=== PATIENT | female | born 1985 | race African-American/Black ===

== ENCOUNTER 2016-08-20 03:28 | Inpatient (IN) | payer OTHER ==
[2016-08-20] VITALS (9 sets, daily range): BP systolic 109–126; BP diastolic 63–78
[~2016-08-20] VITALS: Ht 170.2 cm; Wt 82.8 kg
--- NOTE | ~2016-08-20 | HC ---
[facility] [place] [address] CONSULTATION Name: IVET PEGUERO Room #: 245-P ADM IN M.R.#: [id number] Admission: 08/20/16 Attend Phys: Guanako Terry MD Discharge: Date of : 87 Report #: [id number] THIS REPORT FOR: //name// CC: FLEX physician/PCP Guanako Terry DATE OF SERVICE: 08/20/2016 REASON FOR CONSULTATION: Chest pain. HISTORY OF PRESENT ILLNESS: This is a very pleasant 31-year-old female who was transferred via EMS from home to the Emergency Room for complaints of her substernal chest discomfort. The patient states that she woke up from sleep and it was a sharp, stabbing sensation like a needlestick. She states that she has not had any prior symptoms of this, but does have a history of dyspepsia and some symptoms compatible with reflux. Upon further questioning, she stated that the discomfort did not radiate but it was quite severe and could not tolerate it. She was a little bit nauseated with it and short of breath. The patient states she has had some symptoms in the past similar to this, they were all at rest when she is lying down. She has no symptoms whatsoever. She is up and about and ambulating. She does have a family history of coronary artery disease with father having had a myocardial infarction in the age of 40s. No associated comorbidities of diabetes, hypertension, and she does not smoke. PAST MEDICAL HISTORY: Preeclampsia. MEDICATIONS: At home are Sprintec daily, Tessalon Perles, Ventolin. ALLERGIES: AMOXICILLIN. PAST SURGICAL HISTORY: Significant for no major surgical procedures. FAMILY HISTORY: Significant for coronary artery disease and hypertension. ELECTROCARDIOGRAM: Normal sinus rhythm, nonspecific ST-T wave changes. Slight ST segment elevation diffusely in the inferolateral leads. Suspicious for early repolarization. SOCIAL HISTORY: The patient is a smoker. Consumes alcohol socially. Does not use recreational drugs. Does not follow particular exercise regimen or dietary restriction. REVIEW OF SYSTEMS: Except for symptoms previously mentioned and those commensurate with comorbid state, the 10-point review of systems is negative. [facility] [address] [place] [address] CONSULTATION Name: IVET PEGUERO JAYLA Room #: 245-P [facility] IN .R.#: [id number] Admission: 08/20/16 Attend Phys: Guanako Terry MD Discharge: Date of : 87 Report #: [id number] PHYSICAL EXAMINATION: GENERAL: Well-developed, well-nourished female resting comfortably in no acute distress. HEENT: Normocephalic, atraumatic. Pupils are equal, round, reactive to light and accommodation. Extraocular muscles are intact. Sclerae and conjunctivae are anicteric. NECK: JVD is normal. Carotid upstrokes are bilaterally symmetrical. No bruits are heard. No thyromegaly. No lymphadenopathy. LUNGS: Clear to auscultation. No wheezes, rhonchi or crackles. No CVA tenderness. CARDIAC: Demonstrates a regular rhythm. Normal first and second heart sounds. No ventricular or atrial gallops, no rubs noted. No murmurs. No lifts or heaves, PMI normal. ABDOMEN: Demonstrates some epigastric tenderness on palpation. Soft, nondistended. Normal bowel sounds. EXTREMITIES: Without cyanosis, clubbing or edema. Distal pulses are intact. DTR symmetrical. NEUROLOGIC: Cranial nerves 2-12 are grossly normal and symmetrical. PSYCHIATRIC: Alert, oriented with normal affect. SKIN: Warm and dry. LABORATORY DATA: Noted in the chart and reviewed. IMPRESSION: 1. Atypical chest pain, likely noncardiac in origin. We will get a stress echo to verify. If abnormal, then we will proceed further, but if not, then I will be assured that it is likely not cardiac in nature and we will need to evaluate other sources. 2. Dyspepsia. This may actually be the source of her symptoms. The nitroglycerin may have helped a little bit on admission to the ER. I am going to initiate omeprazole 40 mg daily if the stress echo is negative. I did discuss dietary changes and habits that are beneficial in individuals that have dyspepsia and acid peptic disease. 3. Recent ____ with respiratory tract infection, completely resolved according to the patient. <ELECTRONICALLY SIGNED> By: Rian Fischer MD 08/21/16 1154 1756 0122 Rian Fischer MD /nt
--- NOTE | ~2016-08-20 | EKG ---
[address] [address] ELECTROCARDIOGRAM REPORT Name: IVET PEGUERO Room #: 245-P ADM IN M.R.#: [id number] Admission: 08/20/16 Attend Phys: Guanako Terry MD Discharge: Date of : 87 Report #: [id number] THIS REPORT FOR: //name// [facility] ED Test Date: 2016-08-20 Test Time: 04:47:31 Pat Name: IVET PEGUERO Department: [facility] Gender: F Store Protection Specialist: KENNETH : 1985 Requested By: Dat Brown Order Number: [id number] MD: Dimas Hyman Measurements Intervals [place] Rate: 60 P: 4 OK: 148 QRS: 62 QRSD: 90 T: 18 QT: 431 QTc: 431 Interpretive Statements Sinus rhythm ST elev, probable normal early repol pattern No previous ECG available for comparison Electronically Signed On 08-20-2016 8:08:[address] [employer] LAW CLERK by Dimas Hyman [email or web address] <ELECTRONICALLY SIGNED> By: Dimas Hyman MD 08/20/16 0808 0447 044 Dimas Hyman MD /[place]
--- NOTE | ~2016-08-20 | EXE ---
[facility] [place] [address] STRESS ECHOCARDIOGRAM Name: IVET PEGUERO Room #: 245-P [facility] IN .R.#: [id number] Admission: 08/20/16 Attend Phys: Luis Angel Otoole Discharge: Date of : 87 Date of Service: 08/20/16 1216 Report #: [id number] THIS REPORT FOR: //name// Stress Echocardiography Ordering physician: Rian Fischer Referring physician: Rian Fischer Design Leader: Avril Vega Nurse: Rosita Thurman RN Indications/History: Chest pain, SOB. BP: 146 / HR: 64bpm Height: 67in Weight: 181.6lb 96 Study data: Location: Echo laboratory. Routine. Informed consent was obtained. A baseline ECG was recorded. Treadmill exercise testing was performed using the Ronald protocol. The patient exercised for 6 min 43 sec, to protocol stage 3, to a maximal work rate of 8.2mets. Exercise was terminated due to dyspnea and moderate fatigue. Transthoracic stress echocardiography. Image quality was adequate. There were no complications. Hemodynamic findings Tricuspid valve: Doppler: Regurgitant peak velocity: 243cm/s. Peak RV-RA gradient: 24mm Hg (S). + +---+ +--------+ !Stage !HR !BP (mmHg) !Symptoms! + +---+ +--------+ !Baseline !64 !146/96 (113)!None ! + +---+ +--------+ !Stage 1 !129!154/82 (106)!--------! + +---+ +--------+ !Stage 2 !164!168/80 (109)!--------! + +---+ +--------+ !Stage 3 !179! !--------! + +---+ +--------+ !Recovery; 1 min!78 ! !--------! + +---+ +--------+ [facility] [address] [place] [address] STRESS ECHOCARDIOGRAM Name: IVET PEGUERO JAYLA Room #: 245-P [facility] IN .R.#: [id number] Admission: 08/20/16 Attend Phys: Luis Angel Otoole Discharge: Date of : 87 Date of Service: 08/20/16 1216 Report #: [id number] !Recovery; 2 min!70 !130/82 (98) !--------! + +---+ +--------+ !Recovery; 3 min!65 !130/70 (90) !--------! + +---+ +--------+ !Recovery; 4 min!64 !122/70 (87) !--------! + +---+ +--------+ !Recovery; 5 min!64 ! !--------! + +---+ +--------+ Max HR: 179bpm (94% max predicted). Max predicted HR: 190bpm.Target HR achieved. Heart rate response was normal. There was a normal resting blood pressure with an appropriate response to stress. The rate-pressure product for the peak heart rate and blood pressure was 61627jm Hg/min. No chest pain. ECG findings Baseline ECG: Normal. Stress ECG: There were no stress arrhythmias or conduction abnormalities. Echo findings Baseline: LV size was normal. LV global systolic function was normal. The estimated LV ejection fraction was 60%. Normal wall motion; no LV regional wall motion abnormalities. Mild TR and trace MR. Peak stress: LV size was reduced appropriately. LV global systolic function was vigorous. The estimated LV ejection fraction was 70%. Normal wall motion; no LV regional wall motion abnormalities. Summary Clinical response to exercise stress: non-ischemic. ECG response to exercise stress: non-ischemic. Echo response to exercise stress: non-ischemic. Conclusions 1. Procedure narrative: Treadmill exercise testing was performed using the Ronald protocol. The patient exercised for 6 min 43 sec, to protocol stage 3, to a maximal work [facility] [address] [place] [address] STRESS ECHOCARDIOGRAM Name: IVET PEGUERO [facility] Room #: 245-P [facility] IN ..#: [id number] Admission: 08/20/16 Attend Phys: Luis Angel Otoole Discharge: Date of : 87 Date of Service: 08/20/16 1216 Report #: [id number] rate of 8.2mets. Exercise was terminated due to dyspnea and moderate fatigue. 2. Baseline ECG: Normal. 3. Stress ECG conclusions: There were no stress arrhythmias or conduction abnormalities. 4. Baseline: LV size was normal. LV global systolic function was normal. The estimated LV ejection fraction was 60%. Normal wall motion; no LV regional wall motion abnormalities. Mild TR and trace MR. 5. Peak stress: LV size was reduced appropriately. LV global systolic function was vigorous. The estimated LV ejection fraction was 70%. Normal wall motion; no LV regional wall motion abnormalities. 6. Impressions: Clinical response to exercise stress: non-ischemic. ECG response to exercise stress: non-ischemic. Echo response to exercise stress: non-ischemic. <ELECTRONICALLY SIGNED> By: Rian Fischer MD 08/20/16 2245 1216 Rian Fischer MD /[place]
--- NOTE | ~2016-08-20 | EKG ---
[address] [place] [address] ELECTROCARDIOGRAM REPORT Name: IVET PEGUERO Room #: 245-P ADM IN M.R.#: [id number] Admission: 08/20/16 Attend Phys: Guanako Terry MD Discharge: Date of : 87 Report #: [id number] THIS REPORT FOR: //name// [facility] ED Test Date: 2016-08-20 Test Time: 03:33:17 Pat Name: IVET PEGUERO Department: Room: [facility] Gender: F Botany Technician: KENNETH : 1985 Requested By: Dat Brown Order Number: [id number] MD: Dimas Hyman Measurements Intervals [place] Rate: 61 P: 13 IN: 158 QRS: 44 QRSD: 98 T: 15 QT: 423 QTc: 426 Interpretive Statements Sinus rhythm ST elev, probable normal early repol pattern No previous ECG available for comparison Electronically Signed On 08-20-2016 8:08:18 BINDERY WORKER by Dimas Hyman [email or web address] <ELECTRONICALLY SIGNED> By: Dimas Hyman MD 08/20/16 0808 2 2 Dimas Hyman MD /[place]
[~2016-08-20 03:28] MED LIST: BACTRIM DS TAB1 EACH PO; BENADRYL25 MG PO; CLEOCIN HCL150 MG PO; FLONASE 0.05%50 MCG NASAL; IBUPROFEN 800800 M1 PO; KEFLEX500 MG PO; LORTABELXR PO; MACROBID 100 M100 M1 PO; MIFEPREX200 MG PO; MISOPROSTOL 2200 MC1 PO; NOHOMEMEDICATIONS; NORCO 5-325 TA1 EACH PO; PERCOCET 5-3251 EACH PO; PHENERGAN 25 MG25 M1 PO; PRENATAL COMPL1 EACH PO; PROTONIX40 MG PO; PROVENTIL HFA6.7 G1 INH; SPRINTEC1 EACH PO; TESSALON PERLE100 MG PO; TRIAMCINOLONE A15 G1 TP; VENTOLIN HFA 1818 GM INH; ZOFRAN ODT4 MG PO; ZPAK PO; [UNRECOGNIZED DRUG - OTHER]
[2016-08-20 03:44] LABS: ABSOLUTE NEUTROPHILS 2.9 thou/uL (1.4-8.2); BASOPHILS 1.3 % (0.0-2.0); EOSINOPHILS 2.4 % (0.0-3.0); HEMATOCRIT 40.3 % (37.0-47.0); HEMOGLOBIN 13.5 gm/dL (12.0-15.0); LYMPHOCYTES 36.4 % (24.0-44.0); MANUAL DIFF NO; MCH 30.3 pg (26.0-34.0); MCHC 33.7 % (28.0-37.0); MCV 89.9 fL (80.0-100.0); MONOCYTES 9.4 % (1.0-8.0); PLATELET COUNT 237 thou/uL (150-400); POLYS 50.5 % (36.0-66.0); RBC 4.48 mil/uL (4.20-5.00); WBC 5.7 thou/uL (4.0-11.0)
[2016-08-20 04:30] LABS: ANION GAP 8 mmol/L (7-16); BUN 8 mg/dL (7-18); CALCIUM 8.4 mg/dL (8.5-10.1); CHLORIDE 105 mmol/L (98-107); CO2 26 mmol/L (21-32); CREATININE 0.7 mg/dL (0.6-1.3); GLUCOSE 100 mg/dL (70-99); SODIUM 139 mmol/L (136-145)
[2016-08-20 04:41] LABS: ALBUMIN 3.5 g/dL (3.4-5.0); ALKALINE PHOSPHATASE 38 U/L (46-116); MAGNESIUM 1.7 mg/dL (1.8-2.4); NT-PRO BRAIN NAT PEPTIDE 38 pg/mL (<300); SGOT 14 U/L (15-37); SGPT 15 U/L (30-65); TOTAL BILIRUBIN 0.4 mg/dL (<0.1-1.0); TOTAL PROTEIN 6.7 g/dL (6.4-8.2); TROPONIN-I < 0.04 ng/mL (<0.04-0.07)
[2016-08-20 04:53] LABS: CK-MB MASS < 0.5 ng/mL (<0.5-3.6)
[2016-08-20 14:25] LABS: CHOLESTEROL 162 mg/dL (<200); HDL CHOLESTEROL 60 mg/dL (>40); LDL CHOLESTEROL 95 mg/dL (<100); TC:HDL 2.7 Ratio (Not establshd); TRIGLYCERIDE 38 mg/dL (<150); VLDL 8 mg/dL (<40)
[2016-08-21 04:07] VITALS: BP 110/65
[2016-08-21 08:43] VITALS: BP 89/68
[2016-08-21 10:46] LABS: BASOPHILS 0.9 % (0.0-2.0); EOSINOPHILS 3.6 % (0.0-3.0); HEMOGLOBIN 13.2 gm/dL (12.0-15.0); MCH 30.5 pg (26.0-34.0); MCV 89.8 fL (80.0-100.0); MONOCYTES 10.5 % (1.0-8.0); PLATELET COUNT 235 thou/uL (150-400); RBC 4.34 mil/uL (4.20-5.00); RDW 12.9 % (10.5-14.5)
[2016-08-21 10:58] LABS: MANUAL DIFF NO
[2016-08-21 11:03] LABS: CALCIUM 8.3 mg/dL (8.5-10.1); CREATININE 0.9 mg/dL (0.6-1.3); POTASSIUM 3.8 mmol/L (3.5-5.1)
[2016-08-21] MEDS ORDERED: PROTONIX 440 MG/VIA2 IV PUSH (14:44)
[2016-08-21 14:50] VITALS: BP 89/68
[2016-09-22] MEDS ORDERED: ZANTAC 150MG T150 MG PO (13:28)
[2016-09-22] MEDS ORDERED: VITAMIN D 5050000 I1 PO (13:29)
[2016-09-22] MEDS ORDERED: MAG (13:32)
[2016-09-22] MEDS ORDERED: CARAFATE1 GM PO (14:30)
[2016-09-22] MEDS ORDERED: ZOFRAN ODT4 MG PO (15:25)
[2016-09-22] MEDS ORDERED: NORCO 5-325 TA1 EACH PO (16:06)
== END 2016-08-21 15:23 | disposition home or self-care (01) | DRG 440 ==
LOC: ER 03:28 → EROBS 05:22 → ICU 05:22
PROVIDERS: Emergency Medicine; Hospitalist; Nurse Practitioner
DX: K85.90 Acute pancreatitis without necrosis or infection, unspecified (principal); I10 Essential (primary) hypertension; F17.210 Nicotine dependence, cigarettes, uncomplicated; E83.42 Hypomagnesemia; Z79.899 Other long term (current) drug therapy; Z88.1 Allergy status to other antibiotic agents; Z82.49 Family history of ischemic heart disease and other diseases of the circulatory system; J45.909 Unspecified asthma, uncomplicated; R10.13 Epigastric pain
CPT/HCPCS: 10203

== ENCOUNTER 2017-03-22 11:31 | Emergency (ER) | payer OTHER ==
[~2017-03-22] VITALS: Ht 170.2 cm; Wt 81.7 kg
--- NOTE | ~2017-03-22 | EKG ---
[address] [address] ELECTROCARDIOGRAM REPORT Name: IVET PEGUERO [facility] [id number] Admission: 03/22/17 Attend Phys: Discharge: 03/22/17 Date of : 87 Report #: [id number] THIS REPORT FOR: //name// [facility] ED Test Date: 2017-03-22 Test Time: 14:32:02 Pat Name: IVET PEGUERO Department: Room: Gender: F Shell Fisherman: NAJMA : 1985 Requested By: Neelam Humphrey Order Number: [id number] MD: Dimas Hyman Measurements Intervals [place] Rate: 69 P: 10 SD: 143 QRS: 41 QRSD: 92 T: 12 QT: 397 QTc: 426 Interpretive Statements Sinus rhythm Compared to ECG 09/22/2016 12:14:35 Early repolarization no longer present Electronically Signed On 03-22-2017 16:51:42 CDT by Dimas Hyman [email or web address] <ELECTRONICALLY SIGNED> By: Dimas Hyman MD 03/22/17 1651 D: 08/1431 31 Dimas Hyman MD /[place]
[~2017-03-22 11:31] MED LIST changes: +CARAFATE1 GM PO; +MAG; +PROTONIX 440 MG/VIA2 IV PUSH; +VITAMIN D 5050000 I1 PO; +ZANTAC 150MG T150 MG PO
[2017-03-22 14:53] LABS: ABSOLUTE NEUTROPHILS 3.9 thou/uL (1.4-8.2); BASOPHILS 0.8 % (0.0-2.0); EOSINOPHILS 1.9 % (0.0-3.0); HEMATOCRIT 44.1 % (37.0-47.0); HEMOGLOBIN 14.7 gm/dL (12.0-15.0); LYMPHOCYTES 36.2 % (24.0-44.0); MANUAL DIFF NO; MCH 29.9 pg (26.0-34.0); MCHC 33.3 g/dL (28.0-37.0); MCV 89.8 fL (80.0-100.0); MONOCYTES 8.1 % (1.0-8.0); PLATELET COUNT 321 thou/uL (150-400); RBC 4.91 mil/uL (4.20-5.00); RDW 12.4 % (10.5-14.5); WBC 7.3 thou/uL (4.0-11.0)
[2017-03-22 15:04] LABS: ANION GAP 10 mmol/L (7-16); BUN 10 mg/dL (7-18); CALCIUM 9.1 mg/dL (8.5-10.1); CHLORIDE 103 mmol/L (98-107); CO2 24 mmol/L (21-32); CREATININE 0.8 mg/dL (0.6-1.0); GLUCOSE 87 mg/dL (74-106); POTASSIUM 3.3 mmol/L (3.5-5.1); SODIUM 137 mmol/L (136-145)
[2017-03-22 15:12] LABS: TROPONIN-I < 0.04 ng/mL (<0.04-0.07)
[2017-03-22] MEDS ORDERED: ATIVAN0.5 MG PO (15:41)
== END 2017-03-22 16:47 | disposition home or self-care (01) ==
LOC: ER 11:31
PROVIDERS: Emergency Medicine
DX: F41.9 Anxiety disorder, unspecified (principal); R06.4 Hyperventilation; R07.89 Other chest pain; F10.99 Alcohol use, unspecified with unspecified alcohol-induced disorder; Z88.1 Allergy status to other antibiotic agents

== ENCOUNTER 2017-08-07 17:57 | Emergency (ER) | payer OTHER ==
[~2017-08-07] VITALS: Ht 170.2 cm; Wt 79.4 kg
[~2017-08-07 17:57] MED LIST changes: +ATIVAN0.5 MG PO
[2017-08-07] MEDS ORDERED: SPRINTEC1 EACH PO (18:12)
[2017-08-07] MEDS ORDERED: NORCO 5-325 TA1 EACH PO (19:47)
[2017-08-07] MEDS ORDERED: VALIUM5 MG PO (19:47)
[2017-08-07 20:31] VITALS: BP 128/80
== END 2017-08-07 20:33 | disposition home or self-care (01) ==
LOC: ER 17:57
DX: M54.10 Radiculopathy, site unspecified (principal); M54.5 Low back pain; M79.604 Pain in right leg; K85.90 Acute pancreatitis without necrosis or infection, unspecified; F41.9 Anxiety disorder, unspecified; Z88.0 Allergy status to penicillin

== ENCOUNTER 2018-07-23 13:04 | Emergency (ER) | payer OTHER ==
[~2018-07-23] VITALS: Ht 170.2 cm; Wt 74.8 kg
[~2018-07-23 13:04] MED LIST changes: +VALIUM5 MG PO
[2018-07-23 13:05] VITALS: BP 126/82
[2018-07-23] MEDS ORDERED: MOBIC7.5 MG PO (13:28)
[2018-07-23] MEDS ORDERED: NORCO 10-325 T1 EACH PO (13:28)
[2018-07-23] MEDS ORDERED: CLEOCIN HCL150 MG PO (13:28)
== END 2018-07-23 14:10 | disposition home or self-care (01) ==
LOC: ER 13:04
DX: S02.5XXA Fracture of tooth (traumatic), initial encounter for closed fracture (principal); Z88.1 Allergy status to other antibiotic agents; F41.9 Anxiety disorder, unspecified; X58.XXXA Exposure to other specified factors, initial encounter; Y92.89 Other specified places as the place of occurrence of the external cause; Y93.89 Activity, other specified; Y99.8 Other external cause status

== ENCOUNTER 2019-07-28 08:38 | Emergency (ER) | payer OTHER ==
[~2019-07-28] VITALS: Ht 170.2 cm; Wt 81.7 kg
[~2019-07-28 08:38] MED LIST changes: +MOBIC7.5 MG PO; +NORCO 10-325 T1 EACH PO
[2019-07-28] MEDS ORDERED: MONTELUKAST SOD10 MG PO (08:58)
[2019-07-28] MEDS ORDERED: ULTRAM 50MG TAB50 MG PO ×2 (09:20→10:08)
[2019-07-28] MEDS ORDERED: CLINDAMYCIN HC300 MG PO ×2 (09:20→10:08)
[2019-07-28] MEDS ORDERED: TYLENOL WITH CO1 TA1 PO (10:18)
[2019-07-28 10:25] VITALS: BP 129/81
== END 2019-07-28 10:26 | disposition home or self-care (01) ==
LOC: ER 08:38
DX: K04.7 Periapical abscess without sinus (principal); Z88.1 Allergy status to other antibiotic agents

== ENCOUNTER 2021-09-23 07:07 | Emergency (ER) | payer OTHER ==
[~2021-09-23] VITALS: Ht 172.7 cm; Wt 77.1 kg
[~2021-09-23 07:07] MED LIST changes: +CLINDAMYCIN HC300 MG PO; +MONTELUKAST SOD10 MG PO; +TYLENOL WITH CO1 TA1 PO; +ULTRAM 50MG TAB50 MG PO
[2021-09-23 07:52] LABS: URINE BILIRUBIN NEGATIVE (Negative); URINE BLOOD NEGATIVE (Negative); URINE CLARITY CLEAR; URINE COLOR YELLOW; URINE GLUCOSE-RANDOM* NEGATIVE (Negative); URINE KETONES 1+ (Negative); URINE LEUKOCYTES-REFLEX NEGATIVE (Negative); URINE NITRITE-REFLEX NEGATIVE (Negative); URINE PROTEIN (DIPSTICK) NEGATIVE (Negative); URINE SPECIFIC GRAVITY >= 1.030 (1.005-1.035); URINE UROBILINOGEN 0.2 E.U./dl (0.2-1.0)
[2021-09-23 09:32] LABS: ABSOLUTE NEUTROPHILS 4.4 thou/uL (1.4-8.2); BASOPHILS 0.8 % (0.0-2.0); EOSINOPHILS 1.5 % (0.0-3.0); HEMATOCRIT 39.8 % (37.0-47.0); HEMOGLOBIN 13.5 gm/dL (12.0-15.0); LYMPHOCYTES 29.7 % (24.0-44.0); MCH 30.4 pg (26.0-34.0); MCV 89.4 fL (80.0-100.0); MONOCYTES 8.2 % (1.0-8.0); PLATELET COUNT 302 thou/uL (150-400); POLYS 59.8 % (36.0-66.0); RBC 4.45 mil/uL (4.20-5.00); RDW 13.4 % (10.5-14.5); WBC 7.4 thou/uL (4.0-11.0)
[2021-09-23 09:38] LABS: CREATININE 0.8 mg/dL (0.6-1.0); POTASSIUM 3.6 mmol/L (3.5-5.1)
[2021-09-23 09:49] LABS: ALBUMIN 4.3 g/dL (3.4-5.0); TOTAL BILIRUBIN 0.5 mg/dL (0.2-1.0); TOTAL PROTEIN 8.3 g/dL (6.4-8.2)
[2021-09-23] MEDS ORDERED: MELOXICAM15 MG PO (11:41)
[2021-09-23] MEDS ORDERED: REGLAN 5 MG TAB5 MG PO (11:41)
[2021-09-23 12:11] VITALS: BP 127/67
--- NOTE | 2021-09-23 12:35 | EKG ---
[place] [address] [facility] [place] [address] ELECTROCARDIOGRAM REPORT Name: IVET PEGUERO Room #: DEP [facility]#: [id number] Admission: 09/23/21 Attend Phys: Discharge: 09/23/21 Date of : 87 Report #: [id number] [facility] ED Test Date: 2021-09-23 Test Time: 07:21:33 Pat Name: IVET PEGUERO Department: Room: Gender: F Warehouse Production Worker: CALI : 1985 Requested By: Ludmila Palacio Order Number: [id number] MD: Stiven Jensen Measurements Intervals [place] Rate: 70 P: 26 MS: 148 QRS: 37 QRSD: 89 T: 16 QT: 428 QTc: 462 Interpretive Statements Sinus rhythm Left atrial enlargement Baseline wander in lead(s) V5 Compared to ECG 03/22/2017 14:32:02 Atrial abnormality now present Electronically Signed On 09-23-2021 12:34:47 NEW CAR MAKE READY WORKER by Stiven Jensen [email or web address] <ELECTRONICALLY SIGNED> By: Stiven Jensen MD, [facility] 09/23/21 1234 0 0 Stiven Jensen MD, FACC /EPI
== END 2021-09-23 12:15 | disposition home or self-care (01) ==
LOC: ER 07:07
PROVIDERS: Emergency Medicine
DX: R07.89 Other chest pain (principal); R55 Syncope and collapse; F41.9 Anxiety disorder, unspecified; Z79.899 Other long term (current) drug therapy; Z88.0 Allergy status to penicillin

== ENCOUNTER 2021-09-27 08:14 | Emergency (ER) | payer OTHER ==
[~2021-09-27] VITALS: Ht 170.2 cm; Wt 81.7 kg
[~2021-09-27 08:14] MED LIST changes: +MELOXICAM15 MG PO; +REGLAN 5 MG TAB5 MG PO
[2021-09-27 09:27] LABS: CREATININE 0.9 mg/dL (0.6-1.0); POTASSIUM 3.3 mmol/L (3.5-5.1)
[2021-09-27 09:32] LABS: ALBUMIN 4.3 g/dL (3.4-5.0); TOTAL BILIRUBIN 0.4 mg/dL (0.2-1.0); TOTAL PROTEIN 8.1 g/dL (6.4-8.2)
[2021-09-27] MEDS ORDERED: ONDANSETRON HCL4 M2 PO (09:45)
[2021-09-27] MEDS ORDERED: PRILOSEC10 MG PO (09:45)
[2021-09-27 10:20] VITALS: BP 123/74
== END 2021-09-27 10:20 | disposition home or self-care (01) ==
LOC: ER 08:14
PROVIDERS: Emergency Medicine
DX: R10.12 Left upper quadrant pain (principal); F41.9 Anxiety disorder, unspecified; Z79.899 Other long term (current) drug therapy; Z88.0 Allergy status to penicillin